=== PATIENT | female | born 1970 | race Caucasian/White ===

== ENCOUNTER 2017-04-06 08:28 | Emergency (ER) ==
[2017-04-06 08:33] VITALS: BP 135/78; TEMP 98.2; BMI 22.1
--- NOTE | 2017-04-06 08:49 | ED.PDOC ---
General ED Provider: Dr. DIONNA BURGOS JR Chief Complaint: Rash Stated Complaint: patient states she has been doing some clean up in the back yard. c/o rash to face, abd., bilateral arms and legs. states it itches and hurts. patient has several wound areas where she has been scratching.[ End ] 1 1 /2 WEEKS 98.2 112 16 99% 135/78 7/10 Time Seen by Physician: 08:41 Mode of Arrival: Walk-In Information Source: Patient Exam Limitations: No limitations Nursing and Triage Documentation Reviewed and Agree: No Review of Systems - Review Of Systems Constitutional: Reports: Malaise Eyes: Reports: No symptoms Ears, Nose, Mouth, Throat: Reports: No symptoms Respiratory: Reports: No symptoms Cardiac: Reports: No symptoms GI: Reports: No symptoms : Reports: No symptoms Skin: Reports: Lesions, Lumps, Rash Neurological: Reports: Anxiety Endocrine: Reports: No symptoms Hematologic/Lymphatic: Reports: No symptoms All Other Systems: Other Past Medical History - Past Medical History Endocrine: Reports: None Cardiovascular: Reports: None Respiratory: Reports: None Hematological: Reports: Anemia Gastrointestinal: Reports: None Genitourinary: Reports: None Neuro/Psych: Reports: Anxiety Musculoskeletal: Reports: None Cancer: Reports: None Last Menstrual Period: 8 months ago/menopausal - Surgical History General Surgical History: Reports: Tubal ligation (TUBAL 21 YRS AGO ), Cholecystectomy (GALLBLADDER 11 YRS AGO) - Family History Family History: Reports: Unknown - Social History Smoking Status: Current every day smoker Hx Substance Use: Yes (MARIJUANA) Alcohol Screening: None Physical Exam - Physical Exam Appearance: Well-appearing, Thin Pain Distress: Moderate Eyes: CHARLES ENT: Ears normal, Nose normal, Oropharynx normal Neck: Supple Respiratory: Airway patent, Breath sounds clear, Breath sounds equal, Respirations nonlabored Cardiovascular: RRR, Pulses normal, No rub, No murmur GI/: Soft, Nontender, No masses, Bowel sounds normal, No Organomegaly Musculoskeletal: Normal strength, ROM intact, No edema, No calf tenderness Skin: Warm, Dry (rash with right volar forearm cellulitis around excoriated area ) Neurological: Sensation intact, Motor intact, Reflexes intact, Cranial nerves intact, Alert, Oriented Psychiatric: Affect appropriate, Mood appropriate, Anxious Critical Care Note - Critical Care Note Total Time (mins): 0 Course - Course Vital Signs: Temp Pulse Resp BP Pulse Ox 07/22/17 08:31 98.2 F 112 H 16 135/78 99 Departure - Departure Time of Disposition: 09:07 Disposition: HOME SELF-CARE Discharge Problem: Rhus dermatitis Cellulitis Qualifiers: Site of cellulitis: extremity Site of cellulitis of extremity: upper extremity Laterality: right Qualifier Code: (L03.113) Cellulitis of right upper limb Instructions: Cellulitis (ED), Poison [place] (ED) Condition: Good Pt referred to PMD for follow-up: Yes Additional Instructions: solumedrol should control rash and swelling benadryl for itching keflex for cellulitis infection prednisone only if rash returns antibiotic until gone- recheck PMD if swelling not resolving quickly recheck PMD one week follow up Prescriptions: Cephalexin [Keflex] 500 mg PO QID #40 capsule Diphenhydramine HCl [Benadryl] 25 mg PO QID #30 capsule Prednisone 20 mg PO DIRECTED #50 tablet Allergies/Adverse Reactions: Allergies azithromycin [From Zithromax] Allergy (Verified 04/06/17 08:33) codeine Allergy (Verified 04/06/17 08:33) Home Medications: Ambulatory Orders Aspirin/Calcium Carbonate/Mag [Aspirin Buffered 325 mg Tab] 325 mg PO EVERY OTHER DAY 11/02/15 Cephalexin [Keflex] 500 mg PO QID #40 capsule 04/06/17 Diphenhydramine HCl [Benadryl] 25 mg PO QID #30 capsule 04/06/17 Prednisone 20 mg PO DIRECTED #50 tablet 04/06/17
[2017-04-06] MEDS ORDERED: SOLU-MEDROL 125 MG IM STA (09:08)
== END 2017-04-06 09:41 | disposition home or self-care (01) ==
LOC: ED 08:28
DX: L23.7 Allergic contact dermatitis due to plants, except food (principal); L03.113 Cellulitis of right upper limb
CPT/HCPCS: 96372; 99282